=== PATIENT | female | born 1955 | race Native Hawaiian/Other Pacific Islander ===

== ENCOUNTER 2016-12-27 09:15 | Outpatient (CLI) | payer OTHER | END 2016-12-27 09:16 | disposition home or self-care (01) | LOC: LABHHL 09:15 | PROVIDERS: ATTEND Internal Medicine | DX: I10 Essential (primary) hypertension (principal); E78.5 Hyperlipidemia, unspecified; H91.90 Unspecified hearing loss, unspecified ear; Z79.899 Other long term (current) drug therapy | CPT/HCPCS: 36415; 80061; 83036 ==